=== PATIENT | male | born 1985 | race Caucasian/White ===

== ENCOUNTER 2022-12-01 23:55 | Emergency (ER) | payer OTHER, SELFPAY ==
--- NOTE | ~2022-12-01 | XR_ITS ---
Clinical Indication: Chest tightness PA and lateral views of the chest: Comparison: None Findings: The lungs are clear, without evidence of focal consolidation or pleural effusion. Cardiome diastinal silhouette is within normal limits. Bones and soft tissues are unremarkable. Impression: Normal chest. Reviewed, dictated and finalized at location . Impression: Normal chest.
[2022-12-02] VITALS (10 sets, daily range): BP systolic 131–145; BP diastolic 78–94; PULSE 88–97; RESP 13–19; TEMP 36.8; O2SAT 96–100
--- NOTE | 2022-12-02 00:01 | ECG_ITS ---
Measurements Intervals [place] Rate: 101 P: 42 OK: 156 QRS: 58 QRSD: 75 T: 51 QT: 332 QTc: 432 Interpretive Statements SINUS TACHYCARDIA BORDERLINE ECG NO PREVIOUS ECG AVAILABLE FOR COMPARISON Electronically Signed On 12-02-2022 7:47:02 CDT by Cade Sinha D.O.
[2022-12-02 00:20] LABS: Basophils Absolute Auto 0.1 K/mm3 (0.0-0.1); Basophils Percent Auto 0.7 % (0.2-1.2); Eosinophils Absolute Auto 0.1 K/mm3 (0-0.3); Eosinophils Percent Auto 1.4 % (0-4.4); Hemoglobin 15.8 g/dL (14.0-18.0); Immature Granulocyte Absolute 0.02 K/mm3 (0.00-0.031); Immature Granulocyte Percent A 0.2 % (0-0.5); Lymphocytes Absolute Auto 3.86 K/mm3 (0.9-3.2); Lymphocytes Percent Auto 42.4 % (18.3-44.2); Mean Corpuscular HGB Conc 33.6 g/dl (32-36); Mean Corpuscular Hemoglobin 29.1 pg (26-34); Mean Corpuscular Volume 86.6 fl (80-100); Mean Platelet Volume 9.8 fl (7.4-10.4); Monocytes Absolute Auto 0.7 K/mm3 (0.1-0.6); Monocytes Percent Auto 7.4 % (2.6-8.5); Neutrophils Absolute Auto 4.4 K/mm3 (1.3-6.7); Neutrophils Percent Auto 47.9 % (45.5-73.1); Platelet Count Result 325 k/mm3 (150-375); Red Blood Count 5.43 M/mm3 (4.6-6.20); Red Cell Distribution Width 12.9 % (11.5-14.5); White Blood Count 9.1 K/mm3 (4.5-10.0)
[2022-12-02 00:30] LABS: Alanine Aminotransferase 59 U/L (6-50); Albumin Level 4.8 g/dL (3.5-5.1); Alkaline Phosphatase 40 U/L (38-126); Anion Gap 9 mmol/L (8-16); Aspartate Amino Transferase 35 U/L (17-59); Bilirubin,Total 0.6 mg/dL (0.2-1.3); Blood Urea Nitrogen 23 mg/dL (9-20); Calcium 9.1 mg/dL (8.4-10.2); Carbon Dioxide 31 mmol/L (22-30); Chloride 100 mmol/L (98-107); Estimated CRCL calculation 94 ml/min; Estimated Glomerular Filt Rate > 60; Glucose 97 mg/dL (65-110); Lipase 112 U/L (23-300); Potassium 3.9 mmol/L (3.4-5.0); Sodium 140 mmol/L (137-145)
[2022-12-02 00:33] LABS: Prothrombin Time 13.2 Seconds (11.1-14.7)
[2022-12-02 00:34] LABS: Partial Thromboplastin Time 26.3 SECONDS (22.3-36.8)
[2022-12-02 00:41] LABS: Troponin I < 0.012 ng/mL (0.000-0.034)
[2022-12-02 04:00] LABS: Troponin I < 0.012 ng/mL (0.000-0.034)
--- NOTE | 2022-12-02 04:46 | ED.GENADULT ---
HPI - General Adult General Chief complaint: Chest Pain Stated complaint: left sided chest tightness, numbness Time Seen by Provider: 12/02/22 02:40 History of Present Illness HPI narrative: this is a 37-year-old male with no medical problems presenting ED with chief complaint of chest pain and left arm tightness. Patient says at 11:30 p.m. he was watching TV when he had a tightness over the left side of his chest. He also had some very subtle numbness and tingling in his left arm. It is a 1/10 in intensity. It has completely resolved by time I evaluated him in our emergency room. He has never had pain like this before has no alleviating or exacerbating factors. He denies nausea vomiting diaphoresis or exertional component. No fever chills productive cough or URI symptoms. Patient was concerned that he was having a heart attack. Exam Narrative: APPEARANCE: No apparent distress. Patient is resting comfortably in bed Head: atraumatic. EYES: EOMI, NOSE: Atraumatic NECK: Trachea midline RESPIRATORY: No increased rate of breathing clear to auscultate CARDIOVASCULAR: RRR, no peripheral edema ABDOMINAL: Non-distended soft nontender no guarding or rebound MUSCULOSKELETAl: No obvious deformities NEURO: Alert. Moving 4/4 extremities SKIN:: Warm, dry. Normal color PSYCHIATRIC: Normal affect Course Vital Signs Vital signs: Vital Signs Temperature 98.2 F 12/02/22 00:08 Pulse Rate 97 12/02/22 00:08 Respiratory Rate 18 12/02/22 00:08 Blood Pressure 145/94 H 12/02/22 00:08 Pulse Oximetry 100 12/02/22 00:08 Temperature 98.2 F 12/02/22 00:08 Pulse Rate 90 12/02/22 03:16 Respiratory Rate 16 12/02/22 03:16 Blood Pressure 139/88 12/02/22 03:16 Pulse Oximetry 100 12/02/22 03:16 Medical Decision Making [facility] Narrative Medical decision making narrative: -Presentation: 29-year-old male presenting with chest pain and left arm tingling. It has since resolved. He is pain-free at this time. 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 Metabolic panel was unremarkable. Troponins were negative x2. Chest x-ray showed no acute cardiopulmonary process. Independent EKG interpretation: Rhythm [sinus], Rate [101], [place] -[normal], [place] -[normal], QRS [narrow], QTC [normal], T waves -[negative for concerning inversions], ST Segments - [Negative for concerning elevations] Final interpretations: Sinus tach Dx tests considered but not ordered: -Procedures: -Interventions: -Shared decision making / Disposition: Patient's EKGs and labs are reviewed without significant high risk changes. Cardiac risk factors reviewed. Heart score is <4 and it iss reasonable for further risk stratification to be performed as outpatient. Pain was not sudden or maximal onset not tearing or ripping quality. No other signs or symptoms suggest aortic dissection. A low risk Wells criteria is noted. PE is felt to be unlikely. No pneumonia seen on evaluation today. Patient is felt to be reasonable candidate for continued evaluation as an outpatient. -RX Vital Signs Vital Signs: Vital Signs Temperature 98.2 F 12/02/22 00:08 Pulse Rate 97 12/02/22 00:08 Respiratory Rate 18 12/02/22 00:08 Blood Pressure 145/94 H 12/02/22 00:08 Pulse Oximetry 100 12/02/22 00:08 Temperature 98.2 F 12/02/22 00:08 Pulse Rate 90 12/02/22 03:16 Respiratory Rate 16 12/02/22 03:16 Blood Pressure 139/88 12/02/22 03:16 Pulse Oximetry 100 12/02/22 03:16 Lab Data 12/02/22 00:07 12/02/22 00:07 Labs: Lab Results
== END 2022-12-02 04:59 | disposition home or self-care (01) ==
PROVIDERS: Emergency Provider Emergency Medicine
DX: R07.9 Chest pain, unspecified (principal); R00.0 Tachycardia, unspecified
CPT/HCPCS: 36415; 71046; 80053; 83690; 84484; 85025; 85610; 85730; 93005; 99284

== ENCOUNTER 2025-06-02 06:29 | Emergency (ER) | payer OTHER, SELFPAY ==
--- OUTSIDE RECORDS SUMMARY | 2025-06-01 04:14 | XMS_ITS | Continuity of Care Document ---
Author Organization [facility] Address [address] [place] [phone] Phone Care Team Providers Care Painter Barrel Name Role Phone Jake NATION, FACSteve, Manisha Unavailable Unavail able Allergies, Adverse Reactions, Alerts Substance Reaction Status Criticality No Known Allergies Active No Inform ation Medications Medication Instructions Dosage Effective Dates (start - stop) Status Comments Zepbound 2.5 mg/0.5 mL subcutaneous pen injector inject (2.5MG) by subcutaneous route every week for 4 weeks 2.5 MG - Active metoprolol succinate ER 25 mg tablet,extended release 24 hr TAKE 1 TABLET BY MOUTH ONCE DAILY - Active Ozempic 0.25 mg or 0.5 mg (2 mg/3 mL) subcutaneous pen injector inject (0.5MG) by subcutaneous route every week on the same day of each week 0.5 MG - Active simvastatin 10 mg tablet TAKE 1 TABLET BY MOUTH ONCE DAILY - Active Advance Directives Directive Yes / No Effective Date File Name No Information Encounters Encounter Description Practice Location Reason(s) For Visit Diagnoses Date Provider Providers Copied on Encounter [facility], [address] [place] [address], [id number], [place] tel:[phone] [facility] [place] No Information Jake Dyer. [address] [place] [address], [id number] , [place]. tel: [phone] [facility], [facility] [place], [place], [id number], [place] tel:[phone] [facility] 5 [facility] Nayaya. [address] [place], [place], [id number] , . tel: [phone] [facility], [address] [place] [address], [id number], tel:[phone] [facility] No Information 5 Segura . [address] [place], [place], [id number] , . tel: [phone] [facility], [address] [place] [address], [id number], tel:[phone] [facility] No Information 5 [facility] Nayaya. [address] [place], [place], [id number] , . tel: [phone] [facility], [address] [place] [address], [id number], tel:[phone] [facility] [employer] No Information 5 [facility]. [address] [place], [place], [id number] , . tel: [phone] [facility], [address] [place] [address], [id number], tel:[phone] [facility] [place] Sleep apneaEssential HTNFamily history of ischemic cardiac diseaseSOBChest painAbnormalities of breathing 5 [facility] Olejaya. [address] [place], [place], [id number] , . tel: [phone] Family History Family Member Type Diagnosis Age At Onset No Information Payers Payer name Insurance type Covered green party ID Authoriza tion(s) No Information Social History Type Description Quantity Date Captured Comments Alcohol Use Details Unknown Caffeine Use Details Unknown Tobacco Use Status No Information Smoking Status No Information Sex Male Chief Complaint And Reason For Visit No Information Reason For Referral Reason For Referral No Information Plan Of Treatment Date Type Action Status Appointment Paul Moe BOOKED History Of Present Illness Encounter Date Complaint History Of Prese nt Illness No Information Functional Status Date Functional Assessmen t No Information Instructions Date Instruction Additional Infor mation No Information Assessments Type Assessment Date No Information Patient Care Teams Name Effective Dates (start - stop) Status Members No Information
[2025-06-02 06:35] VITALS: BP 121/81; PULSE 80; RESP 20; TEMP 36.6; O2SAT 100
--- NOTE | 2025-06-02 07:29 | ED.BACK ---
HPI - Back Pain/Injury General Chief Complaint: Back Pain/Injury Stated Complaint: Upper back pain Time Seen by Provider: 06/02/25 06:59 Source: patient Mode of arrival: ambulatory Limitations: no limitations History of Present Illness HPI Narrative: this is a 39-year-old male with history of hypertension hyperlipidemia who presents to the ED for back pain. Patient states that he woke up yesterday with this left upper back pain. He states he has had this before and has attributed it to his bad mattress. He reports that today, the pain worsened and is now going to his left arm prompting him to come to the ED. He tried ibuprofen with minimal relief. Denies numbness, tingling, known injuries. Related Data Allergies Allergy/AdvReac Type Severity Reaction Status Date / Time No Known Allergies Allergy Verified 06/02/25 07:44 Review of Systems Review of Systems: Gen.: Denies fevers or chills Eyes: Denies eye pain or visual change ENT: Denies congestion Respiratory: Denies shortness of breath or cough CV: Denies chest pain or palpitations GI: Denies abdominal pain nausea, emesis or diarrhea denies burning, urgency, frequency or hematuria Musculoskeletal: As per HPI Neuro: Denies numbness, tingling, weakness or focal weakness Skin: Denies rash Except as documented, all other systems reviewed and negative Exam Narrative: APPEARANCE: No acute distress, nontoxic, resting in bed EYES: EOMI HEENT: Normocephalic, atraumatic, OMM RESPIRATORY: No respiratory distress Clear to auscultation bilaterally with no rhonchi wheezing or rales. CARDIOVASCULAR: Regular rate and rhythm without murmurs rubs or gallops. ABDOMINAL: Soft, nontender, nondistended, no rebound or guarding MUSCULOSKELETAl: Tenderness to palpation over the left trapezius muscle with worsening of pain with lateral flexion of the neck to the left. NEURO: Awake and alert. Following commands, speech normal, no focal deficits SKIN:: Warm, dry. No rashes lesions or abrasions PSYCHIATRIC: Normal affect/mood, Course Vital Signs Vital signs: Vital Signs Temperature 98 F 06/02/25 06:35 Pulse Rate 80 06/02/25 06:35 Respiratory Rate 20 06/02/25 06:35 Blood Pressure 121/81 06/02/25 06:35 Pulse Oximetry 100 06/02/25 06:35 Temperature 98 F 10/31/25 06:35 Pulse Rate 80 06/02/25 06:35 Respiratory Rate 20 06/02/25 06:35 Blood Pressure 121/81 06/02/25 06:35 Pulse Oximetry 100 06/02/25 06:35 MDM - Back Pain/Injury MDM Narrative Medical decision making narrative: 39-year-old male Presenting for for acid back pain. On initial evaluation patient was in no acute distress afebrile, hemodynamic stable. Differentials include but are not limited to: Muscle spasm, muscle strain. Fracture unlikely Notable exam findings: Tenderness over the left trapezius muscle exacerbated by passive range of motion of the neck Patient was given Lidoderm and Toradol with significant improvement of his symptoms. Most likely has a muscle spasm. Advanced imaging is not indicated at this time as is most likely musculoskeletal. He was given prescriptions for Lidoderm and Flexeril. He was educated on Tylenol and ibuprofen use. He was advised follow-up with his PCP in the next week if needed for re-evaluation. Patient was agreeable to this plan. Given strict return precautions. Discharge Plan Discharge Clinical Impression: Spasm of thoracic back muscle Patient Disposition: Home Condition: Stable Instructions: Antibiotic Form, Muscle Spasm (ED) Additional Instructions: You likely have a thoracic muscle spasm. He may take Tylenol and ibuprofen for the pain. Your given prescriptions for Flexeril and Lidoderm to take this as prescribed. Follow-up with your PCP in the next week for re-evaluation if needed. Return to the ED for any new or worsening symptoms. For pain, discomfort or temperature greater than or equal to 100.8 ?F please alternate the following 2 medications as needed. First medication- acetaminophen/Tylenol- 1000mg every 6-8 hours as needed for above indications. Second medication- ibuprofen/Motrin-600mg every 6-8 hours as needed for above indication. Patient Language: German Prescriptions: New lidocaine [Lidoderm] 5 % adhesive patch,medicated 1 patch topical DAILY Qty: 15 0RF Rx Instructions: leave on most painful area for up to 12 hrs cyclobenzaprine 10 mg tablet 10 mg PO HS PRN (Reason: muscle spasm) Qty: 30 0RF Follow-up/Referrals: Slick Hernandez MD [Primary Care Provider, Family Practice]
[2025-06-02] MEDS: Please add drug allergy info to patient profile. 1 EACH XX (07:45)
[2025-06-02] MEDS: LIDOCAINE 5% PATCH 1 PATCH TRANSDERM (07:46)
[2025-06-02] MEDS: KETOROLAC 30 MG/ML VIAL (*BKC) IM (07:46)
--- OUTSIDE RECORDS SUMMARY | 2025-06-02 07:59 | XMS_ITS | Encounter Summary ---
Author Organization [facility] Address 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
--- OUTSIDE RECORDS SUMMARY | 2025-06-02 07:59 | XMS_ITS | Clinical Summary ---
Author Organization [facility] Address [address] [address] Care Team Providers Care Scouring Train Operator Name Role Phone Slick Hernandez MD Primary Care Provider [phone] Source Comments [facility],non-owned Affiliates and Associated Physician Practices is amultiple site organization consisting of ambulatory clinics and hospital sitesin [place], [place], [place] and [place]. This disclosure is being madepursuant to the Care Everywhere program and may not contain all information available regarding this patient. Last updated 18.[facility] Allergies No known active allergies Medications * Be aware that medications may not be up to date on this document. Alwaysverify current medications with the patient. 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 and trunk 07/03/2023 Lentigines 07/03/2023 Social History Tobacco Use Types Packs/Day Years Used Date Smoking Tobacco: Never Smokeless Tobacco: Never Tobacco Cessation:Counseling Given: Not Answered Alcohol Use Standard Drinks/Week Comments Not Currently 0 (1 standard drink = 0.6 oz pur e alcohol) Sex and Gender Information Value Date Recorded Sex Assigned at Not on file Legal Sex Male 1:51 PM CDT Gender Identity Not on file Sexual Orientation Not on file Last Filed Vital Signs Vital Sign Reading Time Taken Comments Blood Pressure - - Pulse - - Temperature - - Respiratory Rate - - Oxygen Saturation - - Inhaled Oxygen Concentration - - Weight 117.9 kg (260 lb) 07/03/2023 9:37 AM PASSENGER SERVICE SUPERVISOR Height 175.3 cm (5' 9) 07/03/2023 9:37 AM PASSENGER SERVICE SUPERVISOR Body Mass Index 38.4 07/03/2023 9:37 AM PASSENGER SERVICE SUPERVISOR Plan of Treatment Health Maintenance Due Date Last Done Comments HIV SCREENING 1999 HEPATITIS C SCREENING 08/20/2002 DTAP/TDAP/TD VACCINES (1 - Tdap) 2003 HEPATITIS B VACCINE (1 of 3 - 19+ 3-dose series) 2003 HPV VACCINE (1 - 3-dose SCDM series) 2011 DEPRESSION SCREENING 08/03/2024 COVID-19 VACCINE (1 - 2023-2 5 season) 2025 INFLUENZA VACCINE (#1) 2025 ZOSTER VACCINE (1 of 2) 2034 HIB VACCINE Aged Out No longer eligi ble based on patient's age to complete this topic MENINGOCOCCAL (Group B) VACC INE SHARED DECISION-MAKING Aged Out No longer eligibl e based on patient's age to complete this topic MENINGOCOCCAL GROUPS A/C/Y/W VACCINE Aged Out No longer eligible b ased on patient's age to complete this topic PNEUMOCOCCAL VACCINE Aged Out No long er eligible based on patient's age to complete this topic Insurance Care Teams Scouring Train Operator Relationship Specialty Start Date End Date Slick Hernandez MD [address] [place] [address] [address] [place] [address] PCP - General Family Medicine 07/03/23
--- OUTSIDE RECORDS SUMMARY | 2025-06-02 07:59 | XMS_ITS | Encounter Summary ---
Author Organization [facility] Address 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
--- OUTSIDE RECORDS SUMMARY | 2025-06-02 07:59 | XMS_ITS | Clinical Summary ---
Author Organization [facility] Address [address] [place] [address] Care Team Providers Care Back Up Scan Coordinator Name Role Phone Unavailable Primary Care Provider Unavailabl e Encounters Date Type Department Care Team Description 05/31/2025 External Device Data [facility] ABSTRACTION Provider, Abstract 05/31/2025 External Device Data [facility] ABSTRACTION Provider, Abstract 05/23/2025 External Device Data [facility] ABSTRACTION Provider, Abstract from Last 3 Months Social History Tobacco Use Types Packs/Day Years Used Date Smoking Tobacco: Never Assessed Sex and Gender Information Value Date Recorded Sex Assigned at Not on file Legal Sex Male 6:31 AM MEDICAL ORDERLY Gender Identity Not on file Sexual Orientation Not on file Plan of Treatment Health Maintenance Due Date Last Done Comments DTAP/TDAP/TD VACCINES (1 - Tdap) 2003 HEPATITIS B VACCINES (1 of 3 - 19+ 3-dose series) 08/04 HPV VACCINES (1 - 3-dose SCDM series) 2011 INFLUENZA VACCINE (#1) 2025
[2025-06-02 08:35] VITALS: BP 125/89; PULSE 70; RESP 16; O2SAT 97
== END 2025-06-02 08:36 | disposition home or self-care (01) ==
PROVIDERS: Emergency Provider Student in an Organized Health Care Education/Training Program; PCP Emergency Medicine
DX: M62.830 Muscle spasm of back (principal); I10 Essential (primary) hypertension; E78.5 Hyperlipidemia, unspecified
CPT/HCPCS: 96372; 99283; A9270; J1885

== ENCOUNTER 2025-06-03 03:26 | Emergency (ER) | payer OTHER, SELFPAY ==
--- NOTE | ~2025-06-03 | CT_ITS ---
CT thoracic spine CLINICAL HISTORY: lower cervical/upper thoracic back pain Technique: Thoracic spine Sagittal and coronal reformats. No contrast CT images acquired with automatic exposure control for dose reduction DLP: 1418 mGy-cm Comparison: None Findings: No fracture. No listhesis. Minimal degenerative changes. No paravertebral soft tissue abnormality. IMPRESSION: 1. No acute abnormality. Reviewed, dictated and finalized at location R. IMPRESSION: 1. No acute abnormality.
--- NOTE | ~2025-06-03 | CT_ITS ---
CT CERVICAL SPINE WITHOUT CONTRAST CLINICAL HISTORY: lower cervical/upper thoracic back pain Technique: Axial images thoracic inlet to skull base Sagittal and coronal reformats. No contrast CT images acquired with automatic exposure control for dose reduction DLP: 480 mGy-cm Comparison: None Findings: No acute fracture or listhesis. Straightening of normal cervical lordosis. Mild degenerative changes. Posterior osteophytes C6 and C7 vertebral bodies. Disc spaces maintained. Prevertebral soft tissues within normal limits. Visualized lung apices: Clear. Visualized thyroid: Unremarkable. No enlarged cervical nodes. IMPRESSION: 1. No acute findings. Reviewed, dictated and finalized at location R. IMPRESSION: 1. No acute findings.
[2025-06-03 03:38] VITALS: BP 137/85; PULSE 70; RESP 18; TEMP 36.5; O2SAT 100
--- NOTE | 2025-06-03 04:37 | ED_ITS ---
HPI - Back Pain/Injury General Chief Complaint: Back Pain/Injury Stated Complaint: back pain Time Seen by Provider: 06/03/25 04:31 History of Present Illness HPI Narrative: 39-year-old male presenting to the emergency department for repeat encounter of back pain. Patient states he thinks he just slept on his mattress wrong but was seen here 24 hours ago and sent home with muscle relaxers and Lidoderm patch. Initially had some relief in his upper thoracic/lower cervical left-sided back pain but is having worsening pain today. Tried some Flexeril without any improvement home. Has a Lidoderm patch applied right now. States that when he was stretching and abducting his left arm he felt improvement but even that is causing no symptom improvement now. No traumatic injuries. No car accidents or sudden deceleration injuries. No chest pain shortness a breath. No midline injury and this is strictly to left side in the paraspinal/scapular muscle area. Patient states that he woke up with the pain and attributed to his mattress. No difficulty ambulating. No fever chills. Was otherwise in his normal state of health. Related Data Allergies Allergy/AdvReac Type Severity Reaction Status Date / Time No Known Allergies Allergy Verified 06/03/25 03:26 Review of Systems Review of Systems: As reviewed above in HPI Exam Narrative: GENERAL: [Well-appearing, well-nourished, and in no acute distress.] HEAD: [Normocephalic, atraumatic.] EYES: [PERRLA and EOMI.] ENT: Nares clear, no rhinorrhea or epistaxis. Mucous membranes moist. NECK: Supple. CHEST: [Clear to auscultation. No respiratory distress.] HEART: [Regular rate and rhythm]. No murmur heard. [Normal peripheral pulses.] ABDOMEN: [Soft, nondistended], [nontender], [No rigidity or guarding] EXTREMITIES: Normal range of motion. No edema in the extremities. No midline cervical thoracic or lumbar spinal tenderness or deformity. Tenderness over the scapular spine/left-sided paracervical and upper thoracic muscle group. No overlying skin deformity or changes. Ambulatory moving all extremities with symmetric strength and sensation. SKIN: Warm, dry, no rash. NEURO: [No focal deficits]. Alert and oriented [x3.] PSYCH: [Normal mood and affect.] Course Vital Signs Vital signs: Vital Signs Temperature 36.5 C 06/03/25 03:38 Pulse Rate 70 06/03/25 03:38 Respiratory Rate 18 06/03/25 03:38 Blood Pressure 137/85 06/03/25 03:38 Pulse Oximetry 100 06/03/25 03:38 Oxygen Delivery Room Air 06/03/25 03:38 Temperature 36.5 C 06/03/25 03:38 Pulse Rate 70 06/03/25 03:38 Respiratory Rate 18 06/03/25 03:38 Blood Pressure 137/85 06/03/25 03:38 Pulse Oximetry 100 06/03/25 03:38 Oxygen Delivery Room Air 06/03/25 03:38 MDM - Back Pain/Injury MDM Narrative Medical decision making narrative: 39-year-old male presenting to the emergency department for repeat encounter of back pain. Patient states he thinks he just slept on his mattress wrong but was seen here 24 hours ago and sent home with muscle relaxers and Lidoderm patch. Initially had some relief in his upper thoracic/lower cervical left-sided back pain but is having worsening pain today. Tried some Flexeril without any improvement home. Has a Lidoderm patch applied right now. States that when he was stretching and abducting his left arm he felt improvement but even that is causing no symptom improvement now. No traumatic injuries. No car accidents or sudden deceleration injuries. No chest pain shortness a breath. No midline injury and this is strictly to left side in the paraspinal/scapular muscle area. Patient states that he woke up with the pain and attributed to his mattress. No difficulty ambulating. No fever chills. Was otherwise in his normal state of health. Normal range of motion. No edema in the extremities. No midline cervical thoracic or lumbar spinal tenderness or deformity. Tenderness over the scapular spine/left-sided paracervical and upper thoracic muscle group. No overlying skin deformity or changes. Ambulatory moving all extremities with symmetric strength and sensation. Patient has normal vital signs and no traumatic injuries. Will obtain imaging given that he has had some refractory symptoms to current medication regimen. CTs of the thoracic and cervical spine were obtained he was treated with Decadron, Toradol, Robaxin and re-evaluated. Images were independently reviewed and I do not appreciate any obvious traumatic injuries or malalignments. Awaiting full CT read by radiology. Patient re- evaluated and felt improvement. Will be discharged with some Toradol, Robaxin. Medical Records Attestation: I reviewed the patient's medical records. Lab Data Attestation: I reviewed the patient's lab results. Imaging Data Attestation: I personally reviewed and interpreted this imaging study as follows: My impression: No obvious traumatic malalignment or acute osseous abnormality. Discharge Plan Discharge Clinical Impression: Spasm of thoracic back muscle Patient Disposition: Home Condition: Stable Instructions: Antibiotic Form, Back Pain (ED) Additional Instructions: CT scan showed no traumatic injuries or acute osseous abnormality. Symptoms consistent with musculoskeletal pain. In addition to your Lidoderm patch we have sent prescriptions for a different muscle relaxer and Toradol which can help with pain. Follow-up with your primary doctor. Return with any emergencies. Patient Language: Cambodian Prescriptions: New ketorolac 10 mg tablet 10 mg PO Q8H PRN (Reason: pain) 5 Days Qty: 20 0RF Rx Instructions: maximum total duration of 5 days from all oral, intranasal, or parenteral formulations methocarbamol 750 mg tablet 750 mg PO TID PRN (Reason: pain) Qty: 20 0RF No Action lidocaine [Lidoderm] 5 % adhesive patch,medicated 1 patch topical DAILY Qty: 15 0RF Rx Instructions: leave on most painful area for up to 12 hrs cyclobenzaprine 10 mg tablet 10 mg PO HS PRN (Reason: muscle spasm) Qty: 30 0RF Follow-up/Referrals: Slick Hernandez MD [Primary Care Provider, Family Practice]
[2025-06-03] MEDS: KETOROLAC 30 MG/ML VIAL (*BKC) IM (05:11)
[2025-06-03] MEDS: dexAMETHasone SOD PHOS INJ 10 MG/ML 1 ML VIAL IM (05:11)
== END 2025-06-03 08:11 | disposition home or self-care (01) ==
PROVIDERS: Emergency Provider Student in an Organized Health Care Education/Training Program; PCP Emergency Medicine
DX: M62.830 Muscle spasm of back (principal)
CPT/HCPCS: 72125; 72128; 96372; 99284; A9270; J1100; J1885